=== PATIENT | male | born 1940 | race Caucasian/White ===

== ENCOUNTER 2018-02-08 10:58 | Emergency (ER) | payer OTHER ==
[~2018-02-08] VITALS: Ht 185.4 cm; Wt 97.5 kg
[~2018-02-08 10:58] MED LIST: ACET500 PO; ACYC800 PO; ALBU3IS INH; ARTTEAOPSO BOTHEYES; ASPI81CH PO; ATOR40TA PO; BISA10S PR; CALCA500CH PO; CARB200 PO; CARBIDOPA LEVO PO; CARBLEV250 PO; CETI5 PO; CHLO25B PO; CHOL10002 PO; CITA20 PO; CLOBET30L TOP; CLON.2TP TOP; CLON.2TP TP; CLOP75 PO; CLOT1TC TOP; DICL25ER PO; DOCU100 PO; FLUC100 PO; FLUT110OIA INH; FURO20 PO; FURO40 PO; GABA100 PO; HYDR1TAB94 PO; Hair, Skin & N1 EACH PO; KETO120T TOP; LATA.005SO LEFTEYE; LISI20 PO; LORA10 PO; Loxapine10 MG PO; MULVIT PO; Milk Of Ma400 MG/5 M PO; NITR.4SL SL; Norco 5-325 Ta1 EACH PO; OMEP10ER PO; OMEP20ER PO; ONDA4 PO; OXYB5 PO; PSYL5.85P PO; Prednisone20 MG PO; RANI150 PO; ROSU10TA PO; TRAM50 PO; Ventolin Soln3 ML INH; ZESTRIL40 MG PO
[2018-02-08] MEDS ORDERED: ALBU90OI INH (11:20)
[2018-02-08] MEDS ORDERED: ALBU2.5V5 (11:22)
[2018-02-08] MEDS ORDERED: AMLO10 PO (11:23)
[2018-02-08] MEDS ORDERED: CLOBET30L TOP (11:36)
[2018-02-08] MEDS ORDERED: DOCU100 (11:36)
[2018-02-08] MEDS ORDERED: HEMORRHOIDAL RC (11:37)
[2018-02-08] MEDS ORDERED: HYDR1TAB94 PO (11:39)
[2018-02-08] MEDS ORDERED: KETO120T TOP (11:39)
[2018-02-08] MEDS ORDERED: Milk Of Ma400 MG/5 M PO (11:50)
[2018-02-08] MEDS ORDERED: NICO2 PO (11:50)
[2018-02-08] MEDS ORDERED: NITR.4SL SL (11:51)
[2018-02-08] MEDS ORDERED: NYST100000 (11:51)
[2018-02-08] MEDS ORDERED: SERT100 PO (11:52)
[2018-02-08] MEDS ORDERED: POTA10T PO (11:52)
[2018-02-08] MEDS ORDERED: TIMO10T (11:52)
== END 2018-02-08 12:22 | disposition home or self-care (01) ==
LOC: ER 10:58
DX: K22.2 Esophageal obstruction (principal); F03.90 Unspecified dementia, unspecified severity, without behavioral disturbance, psychotic disturbance, mood disturbance, and anxiety; I10 Essential (primary) hypertension; F32.9 Major depressive disorder, single episode, unspecified; I25.2 Old myocardial infarction; Z88.8 Allergy status to other drugs, medicaments and biological substances; Z79.899 Other long term (current) drug therapy; Z79.82 Long term (current) use of aspirin; Z79.01 Long term (current) use of anticoagulants; Z86.73 Personal history of transient ischemic attack (TIA), and cerebral infarction without residual deficits; Z87.891 Personal history of nicotine dependence
CPT/HCPCS: 99283

== ENCOUNTER 2018-06-23 15:06 | Observation (INO) | payer OTHER ==
[~2018-06-23] VITALS: Ht 185.4 cm; Wt 89.8 kg
[~2018-06-23 15:06] MED LIST changes: +ALBU2.5V5; +ALBU90OI INH; +AMLO10 PO; +DOCU100; +HEMORRHOIDAL RC; +NICO2 PO; +NYST100000; +POTA10T PO; +SERT100 PO; +TIMO10T
[2018-06-23 15:47] LABS: Source, Urine Voided
[2018-06-23 15:50] LABS: Appearance, Urine Clear (Clear); Bilirubin, Urine Neg (Neg); Blood, Urine Neg (Neg); Color, Urine Yellow (P-Yellow); Glucose Qualitative, Urine Neg (Neg); Ketones, Urine 2+ (Neg); Leukocyte Esterase, Urine 1+ (Neg); Nitrite, Urine Neg (Neg); Protein, Urine Neg (Neg); Specific Gravity, Urine 1.015 (1.003-1.022); Urobilinogen, Urine NORM (Normal)
[2018-06-23 16:04] LABS: Bacteria Not Seen /hpf; Red Blood Cells, Urine Not Seen /hpf (0-2); Squamous Epithelial Cells Not Seen /hpf (Few); White Blood Cells, Urine 0-2 /hpf (0-5)
[2018-06-23 16:38] LABS: BASOPHILS ABSOLUTE AUTO 0.02 K/mm3 (0.00-0.23); BASOPHILS PERCENT AUTO 0 % (0-2); EOSINOPHILS ABSOLUTE AUTO 0.05 K/mm3 (0.00-0.68); EOSINOPHILS PERCENT AUTO 0 % (0-6); Hematocrit 48.5 % (37.0-53.0); Hemoglobin 15.5 g/dL (13.5-17.5); IMMATURE GRAN ABSOLUTE AUTO 0.03 K/mm3 (0.00-0.10); IMMATURE GRAN PERCENT AUTO 0 % (0-1); LYMPHOCYTES ABSOLUTE AUTO 1.24 K/mm3 (0.84-5.20); LYMPHOCYTES PERCENT AUTO 9 % (21-46); MONOCYTES ABSOLUTE AUTO 0.91 K/mm3 (0.16-1.47); MONOCYTES PERCENT AUTO 7 % (4-13); Mean Corpuscular HGB 30.8 pg (26.0-34.0); Mean Corpuscular Volume 96 fL (80-100); NEUTROPHILS ABSOLUTE AUTO 11.46 K/mm3 (1.96-9.15); NEUTROPHILS PERCENT AUTO 84 % (41-73); Platelet Count 232 K/mm3 (150-400); RDW Coefficient Variation 12.4 % (11.7-14.2); RDW Standard Deviation 44.1 fL (35.1-46.3); Red Blood Cell Count 5.03 M/mm3 (4.30-5.90); White Blood Cell Count 13.71 K/mm3 (4.00-11.30)
[2018-06-23] MEDS ORDERED: Artificial Tea1 EACH BOTHEYES (16:54)
[2018-06-23 16:57] LABS: Alanine Aminotransfer (ALT/SGP 21 U/L (12-78); Albumin, Blood 3.6 g/dL (3.4-5.0); Albumin/Globulin Ratio 0.9 (0.8-1.8); Alk Phos 65 U/L (50-136); Anion Gap 9 mmol/L (6-16); Aspartate Aminotrans (AST/SGOT 14 U/L (12-37); Bilirubin, Total 0.5 mg/dL (0.1-1.0); Blood Urea Nitrogen 14 mg/dL (8-24); Bun/Creatinine Ratio 15.1 (12.0-20.0); CO2, Blood 27 mmol/L (21-32); Calcium, Blood 9.5 mg/dL (8.5-10.1); Chloride, Blood 108 mmol/L (98-108); Creatinine, Blood 0.93 mg/dL (0.60-1.20); Globulin, Blood 3.8 g/dL (2.2-4.0); Glomerular Filtration Rate >60 (60-); Glucose, Blood 118 mg/dL (70-99); Magnesium, Blood 2.4 mg/dL (1.6-2.4); Potassium, Blood 4.2 mmol/L (3.5-5.5); Sodium, Blood 144 mmol/L (136-145); Total Protein, Blood 7.4 g/dL (6.4-8.2); Troponin I <0.015 ng/mL (0.000-0.040)
[2018-06-23] MEDS ORDERED: TIMOPTIC 0.5%1 EACH LEFTEYE (16:59)
[2018-06-23] MEDS ORDERED: Protonix40 MG PO (17:40)
[2018-06-24 03:55] LABS: Hematocrit 45.9 % (37.0-53.0); Hemoglobin 14.9 g/dL (13.5-17.5); Mean Corpuscular HGB 31.4 pg (26.0-34.0); Mean Corpuscular HGB Conc 32.5 g/dL (31.5-36.5); Mean Corpuscular Volume 97 fL (80-100); Platelet Count 198 K/mm3 (150-400); RDW Coefficient Variation 12.5 % (11.7-14.2); RDW Standard Deviation 44.9 fL (35.1-46.3); Red Blood Cell Count 4.74 M/mm3 (4.30-5.90); White Blood Cell Count 10.13 K/mm3 (4.00-11.30)
[2018-06-24 04:14] LABS: Alanine Aminotransfer (ALT/SGP 14 U/L (12-78); Albumin/Globulin Ratio 0.9 (0.8-1.8); Alk Phos 44 U/L (50-136); Anion Gap 9 mmol/L (6-16); Aspartate Aminotrans (AST/SGOT 9 U/L (12-37); Bilirubin, Total 0.8 mg/dL (0.1-1.0); Blood Urea Nitrogen 15 mg/dL (8-24); Bun/Creatinine Ratio 17.1 (12.0-20.0); CO2, Blood 27 mmol/L (21-32); Calcium, Blood 8.4 mg/dL (8.5-10.1); Chloride, Blood 112 mmol/L (98-108); Creatinine, Blood 0.88 mg/dL (0.60-1.20); Globulin, Blood 3.2 g/dL (2.2-4.0); Glomerular Filtration Rate >60 (60-); Glucose, Blood 129 mg/dL (70-99); Potassium, Blood 3.6 mmol/L (3.5-5.5); Sodium, Blood 148 mmol/L (136-145); Total Protein, Blood 6.2 g/dL (6.4-8.2)
== END 2018-06-24 16:34 | disposition home or self-care (01) ==
LOC: ER 15:06 → ICUW 15:07 → ICUE 15:07
PROVIDERS: Emergency Medicine; Internal Medicine; Student in an Organized Health Care Education/Training Program
PROC: 0DC58ZZ Extirpation of Matter from Esophagus, Via Natural or Artificial Opening Endoscopic (ICD-10-PCS; principal; 2018-06-23 17:30)
DX: T18.128A Food in esophagus causing other injury, initial encounter (principal); K20.8 Other esophagitis; K22.2 Esophageal obstruction; F32.9 Major depressive disorder, single episode, unspecified; I25.2 Old myocardial infarction; G20 Parkinson's disease; I10 Essential (primary) hypertension; Z88.8 Allergy status to other drugs, medicaments and biological substances; Z79.899 Other long term (current) drug therapy; Z86.73 Personal history of transient ischemic attack (TIA), and cerebral infarction without residual deficits; Z79.02 Long term (current) use of antithrombotics/antiplatelets
CPT/HCPCS: 36415; 71046; 74220; 80053; 81001; 83735; 84484; 85025; 85027; 87086; 93005; 93010; 94760; 96360; 96361; 96372; 96374; 99285-25; C9113; G0378; J1610; J1650; J7030; J7120

== ENCOUNTER → 2019-01-14 | Outpatient (CLI) | payer OTHER ==
[~2019-01-14] MED LIST changes: +Artificial Tea1 EACH BOTHEYES; +Protonix40 MG PO; +TIMOPTIC 0.5%1 EACH LEFTEYE
[2019-01-15 12:08] LABS: Bilirubin, Urine Neg (Neg); Blood, Urine Neg (Neg); Glucose Qualitative, Urine Neg (Neg); Ketones, Urine Neg (Neg); Leukocyte Esterase, Urine Neg (Neg); Nitrite, Urine Neg (Neg); Protein, Urine Neg (Neg); Urobilinogen, Urine NORM (Normal)
[2019-01-15 13:52] LABS: Appearance, Urine Clear (Clear); Color, Urine Yellow (P-Yellow)
== END | disposition home or self-care (01) ==
LOC: LAB 19:47 → LAB SHORT 19:47
PROVIDERS: Nurse Practitioner Adult Health
DX: N39.0 Urinary tract infection, site not specified (principal)
CPT/HCPCS: 81003

== ENCOUNTER 2019-08-14 10:30 | Emergency (ER) | payer OTHER ==
[~2019-08-14] VITALS: Ht 182.9 cm; Wt 94.1 kg
[2019-08-14] MEDS ORDERED: [UNRECOGNIZED DRUG - OTHER] (11:26)
[2019-08-14] MEDS ORDERED: CHLO25B PO (11:26)
[2019-08-14] MEDS ORDERED: Flonase 0.05% N16 GM (11:27)
[2019-08-14] MEDS ORDERED: Hair, Skin & N1 EACH PO (11:28)
[2019-08-14] MEDS ORDERED: LATA.005SO (11:28)
[2019-08-14] MEDS ORDERED: PSYSENPA PO (11:29)
[2019-08-14] MEDS ORDERED: Voltaren100 GM TOP (13:15)
== END 2019-08-14 14:29 | disposition home or self-care (01) ==
LOC: ER 10:30
DX: M79.672 Pain in left foot (principal); F32.9 Major depressive disorder, single episode, unspecified; I25.2 Old myocardial infarction; I10 Essential (primary) hypertension; G20 Parkinson's disease; F03.90 Unspecified dementia, unspecified severity, without behavioral disturbance, psychotic disturbance, mood disturbance, and anxiety; Z86.73 Personal history of transient ischemic attack (TIA), and cerebral infarction without residual deficits; Z87.891 Personal history of nicotine dependence; Z88.8 Allergy status to other drugs, medicaments and biological substances; Z79.899 Other long term (current) drug therapy
CPT/HCPCS: 73630; 99283-25

== ENCOUNTER → 2021-07-22 | Outpatient (CLI) | payer OTHER ==
[~2021-07-22] MED LIST changes: +Flonase 0.05% N16 GM; +LATA.005SO; +PSYSENPA PO; +Voltaren100 GM TOP; +[UNRECOGNIZED DRUG - OTHER]
== END ==
LOC: LAB SHORT 09:50 → LAB 09:50
DX: Z20.822 Contact with and (suspected) exposure to COVID-19 (principal)
CPT/HCPCS: U0003

== ENCOUNTER → 2021-07-28 | Outpatient (CLI) | payer OTHER | LOC: LAB 12:38 → LAB SHORT 12:38 | DX: Z20.822 Contact with and (suspected) exposure to COVID-19 (principal) | CPT/HCPCS: U0003 ==

== ENCOUNTER → 2021-08-22 | Outpatient (CLI) | payer OTHER ==
[2021-08-24 16:47] LABS: CORONAVIRUS (COVID19) CSH-NRL Negative (Negative)
== END ==
LOC: LAB SHORT 08:00
PROVIDERS: Family Medicine
DX: I63.9 Cerebral infarction, unspecified (principal); K21.9 Gastro-esophageal reflux disease without esophagitis; M25.569 Pain in unspecified knee; I10 Essential (primary) hypertension; E66.9 Obesity, unspecified; G89.29 Other chronic pain; F03.90 Unspecified dementia, unspecified severity, without behavioral disturbance, psychotic disturbance, mood disturbance, and anxiety; F32.9 Major depressive disorder, single episode, unspecified; H04.129 Dry eye syndrome of unspecified lacrimal gland; T78.40XA Allergy, unspecified, initial encounter; G20 Parkinson's disease
CPT/HCPCS: U0003

== ENCOUNTER → 2021-08-25 | Outpatient (CLI) | payer OTHER | END | disposition home or self-care (01) | LOC: LAB SHORT 14:52 | DX: Z11.52 Encounter for screening for COVID-19 (principal); Z20.822 Contact with and (suspected) exposure to COVID-19 | CPT/HCPCS: U0003 ==

== ENCOUNTER 2025-01-08 11:34 | Emergency (ER) | payer OTHER ==
[~2025-01-08] VITALS: Ht 188 cm; Wt 111.1 kg
[2025-01-08 13:00] VITALS: BP 148/72
== END 2025-01-08 14:38 | disposition home or self-care (01) ==
LOC: ER 11:34
DX: S30.0XXA Contusion of lower back and pelvis, initial encounter (principal); G20.A1 Parkinson's disease without dyskinesia, without mention of fluctuations; F02.80 Dementia in other diseases classified elsewhere, unspecified severity, without behavioral disturbance, psychotic disturbance, mood disturbance, and anxiety; I10 Essential (primary) hypertension; I25.2 Old myocardial infarction; Z87.891 Personal history of nicotine dependence; Z86.73 Personal history of transient ischemic attack (TIA), and cerebral infarction without residual deficits; Z88.8 Allergy status to other drugs, medicaments and biological substances; Z79.01 Long term (current) use of anticoagulants; Z79.899 Other long term (current) drug therapy; W18.30XA Fall on same level, unspecified, initial encounter
CPT/HCPCS: 99283